=== PATIENT | male | born 1960 | race African-American/Black ===

== ENCOUNTER 2017-02-09 09:04 | Inpatient (IN) | payer OTHER ==
[2017-02-09 10:21] VITALS: BMI 25.6
--- NOTE | 2017-02-09 10:58 | HP ---
Admission [facility] - [facility] Chief Complaint: i am here for rehab from cocaine and marijuana Allergies/Adverse Reactions: Allergies Allergy/AdvReac Type Severity Reaction Status Date / Time pork derived (porcine) Allergy Severe Swelling Verified 02/09/17 10:40 History of Present Illness: this 56 years old male with cocaine and marijuana dependence,seeking rehab,last treatment [facility] 03/24 history of htn ,s/p bilateral hip replacement, arthritis of right knee carpal tunnel both hands longest period of sobriety 5 years follow up with pmd - Ebola screening Have you traveled outside of the country in the last 21 days: No (N) Have you had contact with anyone from an Ebola affected area: No Have you been sick,other than usual withdrawal symptoms: No Do you have a fever: No - Review of Systems Constitutional: No Symptoms Reported EENT: reports: No Symptoms Reported Respiratory: reports: No Symptoms reported Cardiac: reports: No Symptoms Reported GI: reports: No Symptoms Reported : reports: No Symptoms Reported Musculoskeletal: reports: Back Pain (s/p back surgery), Muscle Pain Integumentary: reports: No Symptoms Reported Neuro: reports: No Symptoms reported, Other (stated has weakness of both hands and legs carpal tunnel syndrome both hands) Endocrine: reports: No Symptoms Reported Hematology: reports: No Symptoms Reported Psychiatric: reports: No Sypmtoms Reported Patient History - Patient Medical History Hx Anemia: No Hx Asthma: No Hx Chronic Obstructive Pulmonary Disease (COPD): No Hx Cancer: No Hx Cardiac Disorders: No Hx Congestive Heart Failure: No Hx Hypertension: Yes (on norvasc 10 mgs po daily) Hx Hypercholesterolemia: No Hx Pacemaker: No HX Cerebrovascular Accident: No Hx Seizures: No Hx Dementia: No Hx Diabetes: No Hx Gastrointestinal Disorders: No Hx Liver Disease: No Hx Genitourinary Disorders: No Hx Sexually Transmitted Disorders: No Hx Renal Disease (ESRD): No Hx Thyroid Disease: No Hx Human Immunodeficiency Virus (HIV): No (last 10/23 negative) Hx Hepatitis C: No Hx Depression: No Hx Suicide Attempt: No Hx Bipolar Disorder: No Hx Schizophrenia: No Other Medical History: no suicidal,no homicidal,s/p surgery of back,bilat hip replacement,arthriti - Patient Surgical History Past Surgical History: Yes Hx Neurologic Surgery: Yes (Spinal lumbar sx in 04/22) Hx Cataract Extraction: No Hx Cardiac Surgery: No Hx Lung Surgery: No Hx Breast Surgery: No Hx Breast Biopsy: No Hx Abdominal Surgery: No Hx Appendectomy: No Hx Cholecystectomy: No Hx Genitourinary Surgery: No Hx Section: No Hx Orthopedic Surgery: Yes (R hip in 2013 L hip 2014 replacement) Other Surgical History: R ankle fx sx Anesthesia Reaction: No - PPD History Previous Implant?: Yes Documented Results: Positive w/o proof Implanted On Prior [facility] Admission?: No PPD to be Administered?: No - Smoking Cessation Smoking history: Former smoker Have you smoked in the past 12 months: No If you are a former smoker, when did you quit?: 2011 Hx Chewing Tobacco Use: No Initiated information on smoking cessation: No 'Breaking Loose' booklet given: 02/09/17 - Substance & Tx. History Hx Alcohol Use: No Hx Substance Use: Yes Substance Use Type: Cocaine, Marijuana Hx Substance Use Treatment: Yes ([facility] in 2015) - Substances Abused Crack Route: Smoking Frequency: Daily Amount used: $300 Age of first use: 19 Date of Last Use: 02/08/17 Marijuana/Hashish Route: Smoking Frequency: Daily Amount used: 1 BAG Age of first use: 10 Date of Last Use: 02/09/17 Family Disease History - Family Disease History Family Disease History: Heart Disease: Mother, CA: Father (lymphoma) Admission Physical Exam [facility] - Vital Signs Vital Signs: Vital Signs - 24 hr 02/09/17 10:18 Temperature 97.1 F L Pulse Rate 78 Respiratory 18 Rate Blood Pressure 119/86 - Physical General Appearance: Yes: Within Normal Limits HEENTM: Yes: Normal ENT Inspection, BRADLEY, Pharynx Normal Respiratory: Yes: Within Normal Limits, Lungs Clear, Normal Breath Sounds Neck: Yes: Within Normal Limits, Supple, Trachea in good position Breast: Yes: Within Normal Limits Cardiology: Yes: Regular Rhythm, Regular Rate, S1, S2 Abdominal: Yes: Within Normal Limits, Normal Bowel Sounds, Non Tender, Flat, Soft Genitourinary: Yes: Within Normal Limits Back: Yes: Muscle Spasm (s/p bck surgery) Musculoskeletal: Yes: Back pain, Muscle Pain Extremities: Yes: Normal Range of Motion, Other (s/p bilateral hip replacement) Neurological: Yes: Motor Strength 5/5, Other (carpal tunnel syndrome both hands) Integumentary: Yes: Within Normal Limits Lymphatic: Yes: Within Normal Limits - Diagnostic (1) Cannabis dependence Current Visit: No Status: Acute (2) Cocaine dependence Current Visit: No Status: Acute (3) Hypertension Current Visit: No Status: Acute (4) Insomnia Current Visit: No Status: Acute (5) Carpal tunnel syndrome on both sides Current Visit: Yes Status: Acute (6) History of bilateral hip replacements Current Visit: Yes Status: Acute (7) History of back surgery Current Visit: Yes Status: Acute (8) Arthritis of right knee Current Visit: Yes Status: Acute (9) Neuropathy Current Visit: Yes Status: Acute Cleared for Admission [facility] - Detox or Rehab Claeared for Rehab Admission: Yes S Breath Alcohol Content Breath Alcohol Content: 0 Urine Drug Screen - Results Drug Screen Negative: No Urine Drug Screen Results: THC-Marijuana, TARIQ-Cocaine Inpatient Rehab Admission - Initial Determination Are CD services needed?: Yes Free of communicable disease: Yes Not in need of hospitalization: Yes - Rehab Admission Criteria Previous failed treatment: Yes Poor recovery environment: Yes Comorbidities: Yes Patient is meeting Inpatient Rehab admission criteria:: Yes
[2017-02-09] MEDS ORDERED: hydrOXYzine PAMOATE 50 MG CAPSULE (FP) PO PRN (11:16)
[2017-02-09] MEDS ORDERED: MAGNESIUM HYDROX 2400MG/30ML ORAL SUSPENSION 30 ML CUP PO PRN (11:16)
[2017-02-09] MEDS ORDERED: LOPERAMIDE HCL 2 MG CAPSULE PO PRN (11:16)
[2017-02-09] MEDS ORDERED: MAG HYDROX/AL HYDROX/SIMETH 30 ML UNIT-DOSE CUP PO PRN (11:16)
[2017-02-09] MEDS ORDERED: MAGNESIUM CITRATE 300 ML BOTTLE PO PRN (11:16)
[2017-02-09] MEDS ORDERED: P-EPHED 60MG/TRIPROLIDI 2.5MG TABLET PO PRN (11:16)
[2017-02-09] MEDS ORDERED: ACETAMINOPHEN 325 MG TABLET (FP) PO PRN (11:16)
[2017-02-09] MEDS ORDERED: IBUPROFEN 400 MG TABLET (FP) PO PRN (11:16)
[2017-02-09] MEDS ORDERED: MENTHOL/PHENOL 1 EACH UD MM PRN (11:16)
[2017-02-09] MEDS ORDERED: guaiFENesin/D-METHORPHAN HB 10 ML UNIT-DOSE CUPS PO PRN (11:16)
--- NOTE | 2017-02-09 13:17 | HP ---
Psychiatrist Admission - Data Date of interview: 02/09/17 Admission source: Self-referred Identifying data: This is the second [facility] admission for this 56 years old Black male, father of 3 children, unemployed on SSD, living with his mother Medical History: Significant for hypertension, arthritis right knee, carpal tunnel syndrome both hands, PPD+ and a history of orthosurgery for bilateral hip replacement in 2012 & 2013 and neurosusurgery for lumbar laminectomy in April 2016. Psychiatric History: Denies history previous psychiatric treatment Physical/Sexual Abuse/Trauma History: Denies history of verbal, physical or sexual abuse as well as DV relationship Additional Comment: Reports history of multiple previous misdemeanor arrests. No probation at present Vital Signs: Vital Signs - 24 hr 02/09/17 10:18 Temperature 97.1 F L Pulse Rate 78 Respiratory 18 Rate Blood Pressure 119/86 Allergies/Adverse Reactions: Allergies Allergy/AdvReac Type Severity Reaction Status Date / Time pork derived (porcine) Allergy Severe Swelling Verified 02/09/17 10:40 Date of last physical exam: 02/09/17 Concur with the findings of this exam: Yes - Substance Abuse/Tx History Hx Alcohol Use: No Hx Substance Use: Yes Substance Use Type: Cocaine (Started smoking crack cocaine at age 19, consumes $ 300 worth daily. Last smoked on 02/08/17), Marijuana (Started smoking marijuana at age 10, consumes one bag daily. Last smoked on 02/09/17) Hx Substance Use Treatment: Yes (2 previous inpt detox & 3 inpt rehab admissions ) Mental Status Exam - Mental Status Exam Alert and Oriented to: Time, Place, Person Cognitive Function: Fair Patient Appearance: Well Groomed Mood: Hopeful, Euthymic Affect: Normal Range Patient Behavior: Cooperative Speech Pattern: Clear Voice Loudness: Normal Thought Disorder: Present Hallucinations: Denies Suicidal Ideation: Denies Homicidal Ideation: Denies Insight/Judgement: Fair Sleep: Poorly Appetite: Good Muscle strength/Tone: Normal Gait/Station: Normal Psychiatric Findings - Problem List ([place] 1, 2,3) (1) Cocaine dependence Current Visit: No Status: Acute (2) Cannabis dependence Current Visit: No Status: Acute (3) Substance-induced sleep disorder Current Visit: Yes Status: Acute (4) Arthritis of right knee Current Visit: Yes Status: Chronic (5) Carpal tunnel syndrome on both sides Current Visit: Yes Status: Chronic (6) History of back surgery Current Visit: Yes Status: Chronic (7) History of bilateral hip replacements Current Visit: Yes Status: Chronic (8) Neuropathy Current Visit: Yes Status: Acute - Initial Treatment Plan Initial Treatment Plan: 1) Start Belsomra 10 mg po HS prn for insomnia. 2) Monitor progress
[2017-02-09 15:40] LABS: HEMATOCRIT 38.8 % (35.4-49); HEMOGLOBIN 12.7 GM/dL (11.7-16.9); MCH 27.7 pg (25.7-33.7); MCHC 32.6 g/dl (32.0-35.9); MEAN CELL VOLUME 84.9 fl (80-96); MEAN PLT VOLUME 9.6 fl (7.5-11.1); PLATELET COUNT 227 K/MM3 (134-434); RBC 4.57 M/mm3 (4.00-5.60); RDW 14.7 % (11.9-15.9); WHITE BLOOD COUNT 5.2 K/mm3 (4.0-10.0)
[2017-02-09 15:49] LABS: ALBUMIN 3.9 g/dl (3.4-5.0); ANION GAP 10 (8-16); BLOOD UREA NITROGEN 13 mg/dL (7-18); CALCIUM 9.5 mg/dL (8.5-10.1); CHLORIDE 104 mmol/L (98-107); CO2 27 mmol/L (21-32); GLUCOSE,RANDOM 112 mg/dL (74-106); SGPT/ALT 26 U/L (12-78); SODIUM 141 mmol/L (136-145)
[2017-02-09 15:51] LABS: ALK PHOS 76 U/L (45-117); CREATININE 1.3 mg/dL (0.7-1.3); SGOT/AST 33 U/L (15-37); TOT PROT 7.5 g/dl (6.4-8.2)
[2017-02-09 15:51] LABS: URINE APPEARANCE CLEAR; URINE BILIRUBIN NEGATIVE (NEGATIVE); URINE BLOOD 1+ (NEGATIVE); URINE COLOR LTYELLOW; URINE GLUCOSE (UA) NEGATIVE (NEGATIVE); URINE KETONE NEGATIVE (NEGATIVE); URINE LEUK ESTERASE NEGATIVE (NEGATIVE); URINE NITRITE NEGATIVE (NEGATIVE); URINE PROTEIN NEGATIVE (NEGATIVE); URINE UROBILINOGEN NEGATIVE mg/dL (0.2-1.0)
[2017-02-09] MEDS: ARTIFICIAL TEARS (POLYVINYL ALCOHOL 1.4%) OPTH DROPS OU SCH ×2 (15:51→21:34)
[2017-02-09] MEDS: GABAPENTIN 400 MG CAPSULE (FP) PO SCH ×2 (15:51→21:35)
[2017-02-09] MEDS: THIAMINE HCL 100 MG TABLET (FP) PO SCH (21:35)
[2017-02-10] MEDS: ARTIFICIAL TEARS (POLYVINYL ALCOHOL 1.4%) OPTH DROPS OU SCH ×3 (06:41→22:01)
[2017-02-10] MEDS: GABAPENTIN 400 MG CAPSULE (FP) PO SCH ×3 (06:41→22:00)
[2017-02-10] MEDS: PRENATAL VITAMINS W/ FOLIC ACID TABLET (FP) PO SCH (09:26)
[2017-02-10] MEDS: amLODIPine BESYLATE 10 MG TABLET (FP) PO SCH (09:26)
--- NOTE | 2017-02-10 10:32 | EKG ---
Test Reason : Blood Pressure : / mmHG Vent. Rate : 057 BPM Atrial Rate : 057 BPM P-R Int : 132 ms QRS Dur : 090 ms QT Int : 408 ms P-R-T Axes : 062 044 021 degrees QTc Int : 397 ms SINUS BRADYCARDIA EARLY REPOLARIZATION NO PREVIOUS ECGS AVAILABLE Confirmed by BONY ORTEZ MD ([id number]) on 02/10/2017 10:32:21 AM Referred By: MARISEL ADKINS Confirmed By:BONY ORTEZ MD
[2017-02-10] MEDS: THIAMINE HCL 100 MG TABLET (FP) PO SCH (22:00)
[2017-02-10] MEDS: SUVOREXANT 10 MG TABLET PO PRN (22:02)
[2017-02-11] MEDS: GABAPENTIN 400 MG CAPSULE (FP) PO SCH ×3 (06:32→21:34)
[2017-02-11] MEDS: ARTIFICIAL TEARS (POLYVINYL ALCOHOL 1.4%) OPTH DROPS OU SCH ×3 (06:33→21:36)
[2017-02-11] MEDS: amLODIPine BESYLATE 10 MG TABLET (FP) PO SCH (10:26)
[2017-02-11] MEDS: PRENATAL VITAMINS W/ FOLIC ACID TABLET (FP) PO SCH (10:26)
[2017-02-11] MEDS: IBUPROFEN 400 MG TABLET (FP) PO PRN (10:28)
[2017-02-11] MEDS: THIAMINE HCL 100 MG TABLET (FP) PO SCH (21:34)
[2017-02-11] MEDS: SUVOREXANT 10 MG TABLET PO PRN (21:35)
[2017-02-12] MEDS: ARTIFICIAL TEARS (POLYVINYL ALCOHOL 1.4%) OPTH DROPS OU SCH ×3 (06:32→21:46)
[2017-02-12] MEDS: GABAPENTIN 400 MG CAPSULE (FP) PO SCH ×3 (06:32→21:47)
[2017-02-12] MEDS: amLODIPine BESYLATE 10 MG TABLET (FP) PO SCH (10:18)
[2017-02-12] MEDS: PRENATAL VITAMINS W/ FOLIC ACID TABLET (FP) PO SCH (10:18)
[2017-02-12] MEDS: THIAMINE HCL 100 MG TABLET (FP) PO SCH (21:46)
[2017-02-12] MEDS: SUVOREXANT 10 MG TABLET PO PRN (21:47)
[2017-02-12] MEDS: IBUPROFEN 400 MG TABLET (FP) PO PRN (21:47)
[2017-02-13] MEDS: GABAPENTIN 400 MG CAPSULE (FP) PO SCH ×3 (06:29→21:37)
[2017-02-13] MEDS: ARTIFICIAL TEARS (POLYVINYL ALCOHOL 1.4%) OPTH DROPS OU SCH ×3 (06:30→21:38)
[2017-02-13] MEDS: amLODIPine BESYLATE 10 MG TABLET (FP) PO SCH (10:36)
[2017-02-13] MEDS: PRENATAL VITAMINS W/ FOLIC ACID TABLET (FP) PO SCH (10:36)
[2017-02-13] MEDS: THIAMINE HCL 100 MG TABLET (FP) PO SCH (21:37)
[2017-02-13] MEDS: SUVOREXANT 10 MG TABLET PO PRN (21:38)
[2017-02-14] MEDS: GABAPENTIN 400 MG CAPSULE (FP) PO SCH (06:25)
[2017-02-14] MEDS: ARTIFICIAL TEARS (POLYVINYL ALCOHOL 1.4%) OPTH DROPS OU SCH (06:26)
[2017-02-14 07:06] VITALS: TEMP 97.7
--- NOTE | 2017-02-14 10:14 | PN ---
Psychiatric Progress Note Vital Signs: Vital Signs Period Temp Pulse Resp BP Sys/Medrano Pulse Ox Last 24 Hr 97.7 F 68 18-18 144/89 Date of Session: 02/14/17 Chief Complaint:: Discharge Note HPI: Patient addressing Cocaine and Cannabis Dependence comorbid with Substance- induced Sleep Disorder ROS: Arthritis right knee, Carpal tunnel syndrome, Neuropathy were medically managed Current Medications: Active Medications Generic Name Dose Route Start Last Admin Trade Name Freq PRN Reason Stop Dose Admin Acetaminophen 650 mg 02/09/17 11:16 Tylenol - PO Q4H PRN PAIN Al Hydroxide/Mg Hydroxide 30 ml 02/09/17 11:16 Mylanta Oral Suspension - PO Q6H PRN DYSPEPSIA Amlodipine Besylate 10 mg 02/10/17 10:00 02/13/17 10:36 Norvasc - PO 10 mg DAILY DEBRA Administration Artificial Tears 1 drop 02/09/17 14:00 02/14/17 06:26 Artificial Tears OU 1 drop TID DEBRA Administration Eucalyptus/Menthol/Phenol/Sorbitol 1 each 02/09/17 11:16 Cepastat Lozenge - MM Q4H PRN SORE THROAT Gabapentin 800 mg 02/09/17 14:00 02/14/17 06:25 Neurontin - PO 800 mg TID DEBRA Administration Guaifenesin 10 ml 02/09/17 11:16 Robitussin Dm - PO Q6H PRN COUGH Hydroxyzine Pamoate 50 mg 02/09/17 11:16 Vistaril - PO Q4H PRN AGITATION Ibuprofen 400 mg 02/09/17 11:16 02/09/17 15:52 Motrin - PO 400 mg Q6H PRN Administration SEVERE PAIN Ibuprofen 800 mg 02/09/17 11:21 02/12/17 21:47 Motrin - PO 800 mg Q8H PRN Administration PAIN Loperamide HCl 4 mg 02/09/17 11:16 Imodium - PO Q6H PRN DIARRHEA Magnesium Citrate 300 ml 02/09/17 11:16 02/10/17 17:45 Citroma - PO 300 ml Q48H PRN Administration CONSTIPATION Magnesium Hydroxide 30 ml 02/09/17 11:16 Milk Of Magnesia - PO DAILY PRN CONSTIPATION Multivit/Folic Acid/Iron 1 tab 02/10/17 10:00 02/13/17 10:36 Vitamins ([facility]) - PO 1 tab DAILY DEBRA Administration Pseudoephedrine/Triprolidine 1 combo 02/09/17 11:16 Actifed - PO TID PRN NASAL CONGESTION Thiamine HCl 100 mg 02/09/17 22:00 02/13/17 21:37 Vitamin B1 - PO 100 mg HS DEBRA Administration Current Side Effect: No Lab tests ordered: Yes Lab tests reviewed: Yes Provider note:: Patient has completed this program. He has partially met his treatment goals and will continue to address his issues in outpatient treatment at [facility]. Told business writer that from his participation in this program , he has learned the importance of attending NA meetings and having a sponsor.He responded well to Belsomra 10 mg po HS prn for insomnia. He is stable for discharge today Total face to face time:: 35 Mental Status Exam - Mental Status Exam Alert and Oriented to: Time, Place, Person Cognitive Function: Fair Patient Appearance: Well Groomed Mood: Hopeful, Euthymic Affect: Appropriate Patient Behavior: Cooperative Speech Pattern: Clear Voice Loudness: Normal Thought Process: Intact, Goal Oriented Thought Disorder: Not Present Hallucinations: Denies Suicidal Ideation: Denies Homicidal Ideation: Denies Insight/Judgement: Fair Sleep: Well Appetite: Good Muscle strength/Tone: Normal Gait/Station: Normal Psychiatric Treatment Plan - Problem List (1) Cocaine dependence Current Visit: No (2) Cannabis dependence Current Visit: No (3) Substance-induced sleep disorder Current Visit: Yes (4) Arthritis of right knee Current Visit: Yes (5) Carpal tunnel syndrome on both sides Current Visit: Yes (6) History of back surgery Current Visit: Yes (7) History of bilateral hip replacements Current Visit: Yes (8) Neuropathy Current Visit: Yes Initial treatment plan: Patient is discharged today and referred to [facility] for outpatient treatment
[2017-02-14 10:17] VITALS: BP 122/72; PULSE 84
[2017-02-14] MEDS: amLODIPine BESYLATE 10 MG TABLET (FP) PO SCH (10:27)
[2017-02-14] MEDS: PRENATAL VITAMINS W/ FOLIC ACID TABLET (FP) PO SCH (10:27)
== END 2017-02-14 11:35 | disposition home or self-care (01) | DRG 895 ==
LOC: YASAS 09:04 → Y3W 11:15
PROVIDERS: ADMIT Psychiatry & Neurology Psychiatry; ATTEND Psychiatry & Neurology Psychiatry
PROC: HZ42ZZZ Group Counseling for Substance Abuse Treatment, Cognitive-Behavioral (ICD-10-PCS; principal; 2017-02-09)
DX: F14.20 Cocaine dependence, uncomplicated (principal); F19.282 Other psychoactive substance dependence with psychoactive substance-induced sleep disorder; F12.20 Cannabis dependence, uncomplicated; I10 Essential (primary) hypertension; G62.9 Polyneuropathy, unspecified; M13.861 Other specified arthritis, right knee; G56.03 Carpal tunnel syndrome, bilateral upper limbs; Z96.643 Presence of artificial hip joint, bilateral; Z87.891 Personal history of nicotine dependence; Z91.018 Allergy to other foods
CPT/HCPCS: 36415; 71045-TC; 80053; 81003; 81015; 85027; 86593; 87389; 93005; 93010

== ENCOUNTER 2018-06-20 12:05 | Inpatient (IN) | payer OTHER | END 2018-07-04 09:00 | disposition home or self-care (01) | LOC: YASAS 12:05 → Y3W 17:46 ==